=== PATIENT | male | born 1990 | race Caucasian/White ===

== ENCOUNTER 2016-12-26 20:40 | Inpatient (IN) | payer OTHER ==
[~2016-12-26] VITALS: Ht 175.3 cm; Wt 88.5 kg
[2016-12-26] MEDS ORDERED: OMEPRAZOLE40 M1 ORAL (21:08)
[2016-12-26] MEDS ORDERED: Ketorolac 30mg Inj IV ONE (21:30)
--- NOTE | 2016-12-26 21:31 | Emergency Room Report ---
History of Present Illness General Chief Complaint: Lower Back Pain or Injury Source: Patient Present Illness HPI This is a 26-year-old male with no symptom past medical history. He presents with chief complaint of back pain abdominal pain. Couple days ago he felt some pain is lower back. He was going down his right leg and now left thigh area. He was concerned because today he having right lower quadrant pain. He felt a little gassy E. with nausea but no vomiting. No loss of appetite. No diarrhea. No fever or chills. Pain is 4/10. No radiation. Allergies: Coded Allergies: SULFA (SULFONAMIDE ANTIBIOTICS) (Verified Allergy, Unknown, 12/26/16) Patient History Past Medical History: none, see triage record, old chart reviewed Past Surgical History: none Pertinent Family History: none Social History: Denies: smoking Immunizations: other Reviewed Nursing Documentation: PMH: Agreed, PSxH: Agreed Review of Systems Eye: Denies: blurred vision, eye pain ENT: Denies: ear pain, nose congestion, throat swelling Respiratory: Denies: cough, shortness of breath Cardiovascular: Denies: chest pain, palpitations Gastrointestinal: Reports: abdominal pain, nausea, Denies: diarrhea, vomiting Musculoskeletal: Denies: back pain, joint pain Skin: Denies: rash Neurological: Denies: headache, numbness Endocrine: Denies: increased thirst, increased urine Hematologic/Lymphatic: Denies: easy bruising All Other Systems: negative except mentioned in HPI Physical Exam Vital Signs Date Time Temp Pulse Resp B/P Pulse Ox O2 Delivery O2 Flow Rate FiO2 12/26/16 21:00 98.4 83 16 134/85 99 Room Air vitals normal Sp02 EP Interpretation: reviewed, normal General Appearance: well appearing, no apparent distress, alert Head: normocephalic, atraumatic Eyes: bilateral eye EOMI, bilateral eye PERRL ENT: hearing grossly normal, normal pharynx Neck: full range of motion, supple, no meningismus Respiratory: chest non-tender, lungs clear, normal breath sounds Cardiovascular #1: regular rate, rhythm, no murmur Gastrointestinal: normal bowel sounds, no mass, no organomegaly, no bruit, non- distended, tenderness - Right lower quadrant pain Musculoskeletal: back normal, gait/station normal, normal range of motion Psychiatric: mood/affect normal Skin: warm/dry Medical Decision Making Diagnostic Impression: Primary Impression: Appendicitis, acute Qualified Codes: K35.3 - Acute appendicitis with localized peritonitis ER Course Patient presents with right lower quadrant pain. His pain is well-controlled after Toradol. He does have acute appendicitis on CT scan. Kept n.p.o. and antibiotics given. No perforation or abscess. I discussed the case with the surgeon who will see him in the morning. Agree with antibiotic choice. Dr. Aguillon will be admitting. Laboratory Tests Test 12/26/16 21:00 12/26/16 21:51 Urine Color Pale yellow Urine Appearance Clear Urine pH 6 (4.5-8.0) Urine Specific [place] 1.020 (1.005-1.035) Urine Protein Negative (NEGATIVE) Urine Glucose (UA) Negative (NEGATIVE) Urine Ketones 2+ (NEGATIVE) H Urine Occult Blood Negative (NEGATIVE) Urine Nitrite Negative (NEGATIVE) Urine Bilirubin Negative (NEGATIVE) Urine Urobilinogen Normal MG/DL (0.0-1.0) Urine Leukocyte Esterase Negative (NEGATIVE) White Blood Count 10.1 K/UL (4.8-10.8) Red Blood Count 5.32 M/UL (4.70-6.10) Hemoglobin 17.3 G/DL (14.2-18.0) Hematocrit 48.0 % (42.0-52.0) Mean Corpuscular Volume 90 FL (80-99) Mean Corpuscular Hemoglobin 32.6 PG (27.0-31.0) H Mean Corpuscular Hemoglobin Concent 36.1 G/DL (32.0-36.0) H Red Cell Distribution Width 11.5 % (11.6-14.8) L Platelet Count 219 K/UL (150-450) Mean Platelet Volume 8.8 FL (6.5-10.1) Neutrophils (%) (Auto) 72.3 % (45.0-75.0) Lymphocytes (%) (Auto) 21.7 % (20.0-45.0) Monocytes (%) (Auto) 4.6 % (1.0-10.0) Eosinophils (%) (Auto) 0.6 % (0.0-3.0) Basophils (%) (Auto) 0.7 % (0.0-2.0) Sodium Level 140 mEQ/L (135-145) Potassium Level 3.8 mEQ/L (3.4-4.9) Chloride Level 97 mEQ/L (98-107) L Carbon Dioxide Level 28 mEQ/L (20-30) Anion Gap 15 (5-15) Blood Urea Nitrogen 9 mg/dL (7-23) Creatinine 0.8 mg/dL (0.7-1.2) Estimat Glomerular Filtration Rate > 60 mL/min (>60) Glucose Level 132 mg/dL (74-106) H Calcium Level 9.3 mg/dL (8.6-10.2) Lab Results Impression labs normal. CT/MRI/US Diagnostic Results CT/MRI/US Diagnostic Results : Imaging Test Ordered: CT abdomen and pelvis Impression read by radiologist. Acute appendicitis. Last Vital Signs Date Time Temp Pulse Resp B/P Pulse Ox O2 Delivery O2 Flow Rate FiO2 12/26/16 21:00 98.4 83 16 134/85 99 Room Air Status: improved Disposition: ADMITTED INPATIENT Condition: Serious TATY DUBOSE M.D. Dec 26, 2016 21:31
[2016-12-26 21:36] LABS: APPEARANCE,URINE CLEAR; KETONES,URINE 2+ (NEGATIVE); LEUKOCYTE ESTERASE ,URINE NEGATIVE (NEGATIVE); NITRITE,URINE NEGATIVE (NEGATIVE); PH,URINE 6 (4.5-8.0); PROTEIN,URINE NEGATIVE (NEGATIVE); UROBILINOGEN,URINE NORMAL MG/DL (0.0-1.0)
[2016-12-26 22:05] LABS: BASOPHILS % (AUTO) 0.7 % (0.0-2.0); EOSINOPHILS % (AUTO) 0.6 % (0.0-3.0); LYMPHOCYTES % (AUTO) 21.7 % (20.0-45.0); MEAN CORPUSCULAR HEMOGLOBIN 32.6 PG (27.0-31.0); MEAN CORPUSCULAR HGB CONC 36.1 G/DL (32.0-36.0); MEAN CORPUSCULAR VOLUME 90 FL (80-99); MEAN PLATELET VOLUME 8.8 FL (6.5-10.1); MONOCYTES % (AUTO) 4.6 % (1.0-10.0); NEUTROPHILS % (AUTO) 72.3 % (45.0-75.0); PLATELET COUNT 219 K/UL (150-450); RED BLOOD COUNT 5.32 M/UL (4.70-6.10); RED CELL DISTRIBUTION WIDTH 11.5 % (11.6-14.8); WHITE BLOOD COUNT 10.1 K/UL (4.8-10.8)
[2016-12-26 22:18] LABS: ANION GAP 15 (5-15); CALCIUM 9.3 mg/dL (8.6-10.2); CARBON DIOXIDE 28 mEQ/L (20-30); CHLORIDE 97 mEQ/L (98-107); CREATININE 0.8 mg/dL (0.7-1.2); GLOMERULAR FILTRATION RATE > 60 mL/min (>60); HEMOLYSIS 13; POTASSIUM 3.8 mEQ/L (3.4-4.9); SODIUM 140 mEQ/L (135-145)
[2016-12-26 23:15] VITALS: BP 135/87
[2016-12-26] MEDS ORDERED: Piperacillin/Tazobactam 3.375 GM in NS 110 ML IVPB ONE (23:30)
[2016-12-26] MEDS ORDERED: Zosyn 3.375gm inj ONE (23:37)
[2016-12-27] VITALS (17 sets, daily range): BP systolic 102–159; BP diastolic 54–86
[2016-12-27] MEDS ORDERED: Morphine Sulfate 2mg/ml Inj IVP PRN (00:30)
[2016-12-27] MEDS ORDERED: Ketorolac 30mg Inj IV PRN ×2 (00:30→10:30)
[2016-12-27] MEDS ORDERED: Zosyn 3.375gm inj ONE (01:01)
[2016-12-27] MEDS ORDERED: Piperacillin/Tazobactam 3.375 GM in NS 110 ML IVPB SCH (06:00)
[2016-12-27 07:08] LABS: BASOPHILS % (AUTO) 0.8 % (0.0-2.0); EOSINOPHILS % (AUTO) 1.1 % (0.0-3.0); LYMPHOCYTES % (AUTO) 29.9 % (20.0-45.0); MEAN CORPUSCULAR HEMOGLOBIN 30.1 PG (27.0-31.0); MEAN CORPUSCULAR HGB CONC 33.6 G/DL (32.0-36.0); MEAN CORPUSCULAR VOLUME 90 FL (80-99); MEAN PLATELET VOLUME 8.8 FL (6.5-10.1); MONOCYTES % (AUTO) 7.5 % (1.0-10.0); NEUTROPHILS % (AUTO) 60.6 % (45.0-75.0); PLATELET COUNT 228 K/UL (150-450); RED BLOOD COUNT 5.22 M/UL (4.70-6.10); RED CELL DISTRIBUTION WIDTH 11.8 % (11.6-14.8); WHITE BLOOD COUNT 8.4 K/UL (4.8-10.8)
[2016-12-27 07:27] LABS: ALANINE AMINOTRANSFERASE 29 U/L (3-41); ANION GAP 13 (5-15); ASPARTATE AMINO TRANSFERASE 21 U/L (5-40); CALCIUM 8.7 mg/dL (8.6-10.2); CARBON DIOXIDE 25 mEQ/L (20-30); CHLORIDE 105 mEQ/L (98-107); CREATININE 0.8 mg/dL (0.7-1.2); GLOMERULAR FILTRATION RATE > 60 mL/min (>60); HEMOLYSIS 47; POTASSIUM 4.4 mEQ/L (3.4-4.9); SODIUM 143 mEQ/L (135-145); TOTAL PROTEIN 6.3 g/dL (6.6-8.7)
[2016-12-27] MEDS ORDERED: NS Irrig 1000ml ONE (10:00)
[2016-12-27] MEDS ORDERED: Propofol 10mg/ml 20ml IV ONE (10:00)
[2016-12-27] MEDS ORDERED: Dexamethasone 4mg/ml vial ONE (10:00)
[2016-12-27] MEDS ORDERED: Midazolam 2mg/2ml Inj ONE (10:00)
[2016-12-27] MEDS ORDERED: Lidocaine 1% MPF 10mg/ml 5ml ONE (10:00)
[2016-12-27] MEDS ORDERED: Alfentanil 2ml Inj ONE (10:00)
[2016-12-27] MEDS ORDERED: Sterile Water Irrig 1000ml IRRIG ONE (10:00)
[2016-12-27] MEDS ORDERED: Neostigmine 1mg/ml 10ml Inj ONE (10:00)
[2016-12-27] MEDS ORDERED: Zemuron 50mg/5ml Inj IV ONE (10:00)
[2016-12-27] MEDS ORDERED: Glycopyrrolate 0.2mg/ml 1ml Vial ONE (10:00)
[2016-12-27] MEDS ORDERED: LR 1000ml ONE (10:00)
[2016-12-27] MEDS ORDERED: Bupivacaine 0.25% Inj 30ml INJ ONE (10:04)
--- NOTE | 2016-12-27 10:08 | Consultation ---
DATE OF CONSULTATION: 12/27/2016 PREOPERATIVE CONSULTATION REQUESTING PHYSICIAN: 1. ER Physician. 2. Sunday Carrillo M.D. REASON FOR CONSULTATION: Abdominal pain. HISTORY OF PRESENTING ILLNESS: This is a 26-year-old male, who presented with abdominal pain since yesterday. He stated for two to three days, he felt gassy, but he did not have any pain, but yesterday when he was feeling his abdomen, he started felt tenderness at the right lower quadrant and besides with some movement, he had pain in the area or with the bumps on the road in the car, he felt pain in his right lower quadrant. He stated that he had mild nausea 2 days ago, but no vomiting. He denies any fever, cough, dysuria, or frequency. He denies any previous history of similar pain. PAST MEDICAL HISTORY: He claims to be allergic to sulfa. He denies asthma, diabetes, hypertension, cardiac or renal disease. PAST SURGICAL HISTORY: None. MEDICATIONS: Omeprazole. SOCIAL HISTORY: This is a 26-year-old male, single without children. He is an actor. Denies smoking, but drinks occasionally. REVIEW OF SYSTEMS: Noncontributory. PHYSICAL EXAMINATION: GENERAL: The patient appeared to be a well-developed, well-nourished, mildly obese 26-year-old male, lying on the bed, complaining of abdominal pain. HEENT: Head is normocephalic and atraumatic. Eyes, pupils are equal, round, and reactive to light. Mouth is clear. NECK: There is no palpable thyromegaly or adenopathy. CHEST: Clear to auscultation and percussion. HEART: There is no gallop or murmur. S1 and S2 are within normal limits. ABDOMEN: Soft and flat with rebound tenderness on the right lower quadrant. There is no palpable organomegaly and bowel sounds are audible. GENITOURINARY: Genital is normal. EXTREMITIES: Within normal limits. LABORATORY DATA: CBC is within normal limits. Chemistry and UA is normal. CAT scan of the abdomen has been interpreted as acute appendicitis. ASSESSMENT: Rule out acute appendicitis. PLAN: The patient has been scheduled for exploratory laparoscopy, appendectomy, and possible open appendectomy. The risks and benefits have been explained to him. He understood and agreed. The patient was notified that the presentation is abnormal, but with CAT scan reporting an acute appendicitis and I have to take an action. Rocio Schwartz M.D. DR: TANG JOB#: [id number] CC:
[2016-12-27] MEDS ORDERED: NS Irrig 1000ml IRRIG ONE (10:12)
[2016-12-27 10:14] LABS: INR 1.2 (0.9-1.1); PROTHROMBIN TIME 11.8 SEC (9.30-11.50)
[2016-12-27] MEDS ORDERED: LR 1000ml 1,000 ML IVLG SCH (10:20)
--- NOTE | 2016-12-27 10:20 | Anethesia Preoperative Eval ---
Anesthesia Pre-op PMH/ROS General Date of Evaluation: Dec 27, 2016 Time of Evaluation: 10:11 Anesthesiologist: Harsha ASA Score: ASA 2 - Emergency Mallampati Score Class I : Soft palate, uvula, fauces, pillars visible Class II: Soft palate, uvula, fauces visible Class III: Soft palate, base of uvula visible Class IV: Only hard plate visible Mallampati Classification: Class II Surgeon: Efren Diagnosis: Abd Pain Surgical Procedure: Laparoscopic Appendectomy Anesthesia History: none Social History: smoking Family History: no anesthesia problems Allergies: Coded Allergies: SULFA (SULFONAMIDE ANTIBIOTICS) (Verified Allergy, Unknown, 12/26/16) Medications: see eMAR Past Medical History Pulmonary: Reports: other - Smoker Gastrointestinal/Genitourinary: Reports: GERD Other: obesity Anesthesia Pre-op Phys. Exam Physician Exam Last Vital Signs Date Time Temp Pulse Resp B/P Pulse Ox O2 Delivery O2 Flow Rate FiO2 12/27/16 07:59 97.9 82 19 119/70 100 Room Air Constitutional: NAD Neurologic: CN 2-12 intact Cardiovascular: RRR Respiratory: CTA Gastrointestinal: S/NT/ND Airway Exam Mallampati Score: Class II MO: limited ROM: full Teeth: intact Anesthesia Pre-op A/P Labs Hematology Test 12/26/16 21:51 12/27/16 05:05 White Blood Count 10.1 K/UL (4.8-10.8) 8.4 K/UL (4.8-10.8) Red Blood Count 5.32 M/UL (4.70-6.10) 5.22 M/UL (4.70-6.10) Hemoglobin 17.3 G/DL (14.2-18.0) 15.7 G/DL (14.2-18.0) Hematocrit 48.0 % (42.0-52.0) 46.7 % (42.0-52.0) Mean Corpuscular Volume 90 FL (80-99) 90 FL (80-99) Mean Corpuscular Hemoglobin 32.6 PG (27.0-31.0) H 30.1 PG (27.0-31.0) Mean Corpuscular Hemoglobin Concent 36.1 G/DL (32.0-36.0) H 33.6 G/DL (32.0-36.0) Red Cell Distribution Width 11.5 % (11.6-14.8) L 11.8 % (11.6-14.8) Platelet Count 219 K/UL (150-450) 228 K/UL (150-450) Mean Platelet Volume 8.8 FL (6.5-10.1) 8.8 FL (6.5-10.1) Neutrophils (%) (Auto) 72.3 % (45.0-75.0) 60.6 % (45.0-75.0) Lymphocytes (%) (Auto) 21.7 % (20.0-45.0) 29.9 % (20.0-45.0) Monocytes (%) (Auto) 4.6 % (1.0-10.0) 7.5 % (1.0-10.0) Eosinophils (%) (Auto) 0.6 % (0.0-3.0) 1.1 % (0.0-3.0) Basophils (%) (Auto) 0.7 % (0.0-2.0) 0.8 % (0.0-2.0) Coagulation Test 12/27/16 09:35 Prothrombin Time 11.8 SEC (9.30-11.50) H Prothromb Time International Ratio 1.2 (0.9-1.1) H Chemistry Test 12/26/16 21:51 12/27/16 05:05 Sodium Level 140 mEQ/L (135-145) 143 mEQ/L (135-145) Potassium Level 3.8 mEQ/L (3.4-4.9) 4.4 mEQ/L (3.4-4.9) Chloride Level 97 mEQ/L (98-107) L 105 mEQ/L (98-107) Carbon Dioxide Level 28 mEQ/L (20-30) 25 mEQ/L (20-30) Anion Gap 15 (5-15) 13 (5-15) Blood Urea Nitrogen 9 mg/dL (7-23) 8 mg/dL (7-23) Creatinine 0.8 mg/dL (0.7-1.2) 0.8 mg/dL (0.7-1.2) Estimat Glomerular Filtration Rate > 60 mL/min (>60) > 60 mL/min (>60) Glucose Level 132 mg/dL (74-106) H 97 mg/dL (74-106) Calcium Level 9.3 mg/dL (8.6-10.2) 8.7 mg/dL (8.6-10.2) Total Bilirubin 0.4 mg/dL (0.0-1.2) Aspartate Amino Transf (AST/SGOT) 21 U/L (5-40) Alanine Aminotransferase (ALT/SGPT) 29 U/L (3-41) Alkaline Phosphatase 58 U/L (40-129) Total Protein 6.3 g/dL (6.6-8.7) L Albumin 4.2 g/dL (3.5-5.2) Globulin 2.1 g/dL Albumin/Globulin Ratio 2.0 (1.0-2.7) Risk Assessment & Plan Assessment: ASA 2E Plan: GA, BIS, Glidescope Status Change Before Surgery: No Pre-Antibiotics Dru Gram Ancef IV Given Within 1 Hr of Incision: Yes Time Given: 10:26 Joseph Mcleod MD Dec 27, 2016 10:20
[2016-12-27] MEDS ORDERED: Midazolam 2mg/2ml Inj IVP PRN (10:30)
[2016-12-27] MEDS ORDERED: Oxycodone/Acetaminophen 5-325 ORAL PRN (10:30)
[2016-12-27] MEDS ORDERED: DiphenhydrAMINE 50mg/ml Inj IVP PRN (10:30)
[2016-12-27] MEDS ORDERED: Meperidine 25mg/ml Inj IV PRN (10:30)
[2016-12-27] MEDS ORDERED: fentaNYL 100 mcg/2 mL IV PRN (10:30)
[2016-12-27] MEDS ORDERED: Norco 5mg/325mg tab ORAL PRN (10:30)
[2016-12-27] MEDS ORDERED: Norco 7.5mg/325mg tab ORAL PRN (10:30)
[2016-12-27] MEDS ORDERED: Ketorolac 60mg Inj IV PRN (10:30)
[2016-12-27] MEDS ORDERED: LORazepam Inj 2mg/ml 1ml IV PRN (10:30)
[2016-12-27] MEDS ORDERED: Hydromorphone 0.5mg/0.5ml inj IVP PRN (10:30)
[2016-12-27] MEDS ORDERED: Atropine Inj 1mg/10ml Syr IV PRN (10:30)
[2016-12-27] MEDS ORDERED: Metoclopramide 10mg/2ml Inj IVP PRN ×2 (10:30→11:30)
[2016-12-27] MEDS ORDERED: Labetalol 5mg/ml 20ml vial IV PRN (10:30)
--- NOTE | 2016-12-27 10:45 | Immediate Post-Op Evaluation ---
Immediate Post-Op Evalulation Immediate Post-Op Evalulation Procedure: Laparoscopic Appendectomy Date of Evaluation: Dec 27, 2016 Time of Evaluation: 11:40 IV Fluids: 1100 LR Blood Products: 0 Estimated Blood Loss: 7 Urinary Output: 0 Blood Pressure Systolic: 139 Blood Pressure Diastolic: 86 Pulse Rate: 111 Respiratory Rate: 16 O2 Sat by Pulse Oximetry: 97 Temperature (Fahrenheit): 98.1 Pain Score (1-10): 2 Nausea: No Vomiting: No Complications 0 Patient Status: awake, reacts, patent, extubated, none Hydration Status: adequate Dru Gram Ancef IV Given Within 1 Hr of Incision: Yes Time Given: 10:26 Joseph Mcleod MD Dec 27, 2016 10:45
--- NOTE | 2016-12-27 10:47 | 48 Hour Post Anesthesia Eval ---
Post Anesthesia Evaluation Procedure: Laparoscopic Appendectomy Date of Evaluation: Dec 27, 2016 Time of Evaluation: 13:42 Blood Pressure Systolic: 128 0: 73 Pulse Rate: 89 Respiratory Rate: 18 Temperature (Fahrenheit): 98.4 O2 Sat by Pulse Oximetry: 98 Airway: patent Nausea: No Vomiting: No Pain Intensity: 2 Hydration Status: adequate Cardiopulmonary Status: Stable Mental Status/LOC: patient returned to baseline Follow-up Care/Observations: 0 Post-Anesthesia Complications: 0 Follow-up care needed: N/A Joseph Mcleod MD Dec 27, 2016 10:46
--- NOTE | 2016-12-27 11:23 | Pre-Procedure Note/Attestation ---
Pre-Procedure Note/Attestation Complete Prior to Procedure Planned Procedure: not applicable Procedure Narrative: exploratory laparoscopy, appendectomy, possible open appendectomy Indications for Procedure Pre-Operative Diagnosis: R/O acute appendicitis Attestation I attest that I discussed the nature of the procedure; its benefits; risks and complications; and alternatives (and the risks and benefits of such alternatives ), prior to the procedure, with the patient (or the patient's legal sales solutions representative). I attest that, if there was a reasonable possibility of needing a blood transfusion, the patient (or the patient's legal sales solutions representative) was given the [facility] standardized written summary, pursuant to the Dieudonne Shannon Blood Safety Act ([place] Health and Safety Code # 1645, as amended). I attest that I re-evaluated the patient just prior to the surgery and that there has been no change in the patient's H&P, except as documented below: YAIR FRAIRE Dec 27, 2016 11:23
--- NOTE | 2016-12-27 11:25 | Brief Operative Note ---
Immediate Post Operative Note Operative Note Pre-op Diagnosis: R/O acute appendicitis Post-op Diagnosis: Possible early appendicitis Surgeon: MD Ying Agronomy Professor: none Anesthesiologist: Dr. Lackey Anesthesia: general Specimen: yes Complications: none Condition: stable Estimated Blood Loss: minimal Drains: none Implant(s) used?: No YAIR FRAIRE Dec 27, 2016 11:25
[2016-12-27] MEDS ORDERED: HYDROmorphone 1mg/ml Carpuject IVP PRN (11:30)
[2016-12-27] MEDS ORDERED: Acetaminophen 650 MG SUPP RECTAL PRN (11:30)
[2016-12-27] MEDS: D5 1/2NS w/KCl 20mEq 1,000 ML IV SCH ×2 (14:04→23:45)
[2016-12-27] MEDS: Pantoprazole Inj IVP SCH (14:05)
[2016-12-27] MEDS: Piperacillin/Tazobactam 3.375 GM in NS 110 ML IVPB SCH ×2 (14:05→21:41)
[2016-12-27] MEDS: Hydromorphone 0.5mg/0.5ml inj IVP PRN ×3 (14:06→21:47)
--- NOTE | 2016-12-27 15:07 | History and Physical ---
History of Present Illness General Date patient seen: Dec 27, 2016 Reason for Hospitalization: Lower Back Pain or Injury Present Illness HPI 26 yr old male s/p appendectomy, in no apparent distress, stated that he was having severe abdominal pain which worsened over 24 hrs, he was diagnosed with appendicitis in the ED. Allergies: Coded Allergies: SULFA (SULFONAMIDE ANTIBIOTICS) (Verified Allergy, Unknown, 12/26/16) Medication History Scheduled Levofloxacin* (Levaquin*), 500 MG ORAL DAILY, (Reported) Omeprazole (Omeprazole), 40 MG ORAL DAILY, (Reported) Scheduled PRN Tramadol Hcl* (Ultram*), 50 MG ORAL Q6H PRN for For Pain, (Reported) Patient History History Provided By: Patient Healthcare decision maker Resuscitation status Full Code Advanced Directive on File Past Medical/Surgical History Past Medical/Surgical History: (1) GERD (gastroesophageal reflux disease) Social History Social History: (1) No history of alcohol use (2) Does not use illicit drugs (3) Does not smoke Review of Systems Constitutional: Denies: chills, fever, malaise, no symptoms, other, see HPI, sweats, weakness Eye: Denies: acuity changes, blurred vision, discharge, double vision, eye pain , no symptoms, nose congestion, nose pain, other, see HPI, tearing ENT: Denies: ear discharge, ear pain, hearing loss, mouth pain, nasal discharge , no symptoms, nose congestion, nose pain, other, see HPI, throat pain, throat swelling Respiratory: Denies: CHRIS, cough, no symptoms, orthopnea, other, see HPI, shortness of breath, sputum, stridor, wheezing Cardiovascular: Denies: PND, chest pain, edema, no symptoms, other, palpitations, see HPI, syncope Gastrointestinal: Reports: abdominal pain Genitourinary: Denies: discharge, dysuria, frequency, hematuria, incontinence, no symptoms, other, pain, retention, see HPI, urgency, vag bleed/dc Musculoskeletal: Denies: back pain, gout, joint pain, joint swelling, muscle pain, muscle stiffness, no symptoms, other, see HPI Skin: Denies: change in color, change in hair/nails, dryness, lesions, no symptoms, other, rash, see HPI Psychiatric: Denies: HI, SI, anxiety, depressed feelings, emotional problems, hallucinations, no symptoms, other, prior hx, see HPI Neurological: Denies: dizziness, focal weakness, headache, no symptoms, numbness, other, paresthesia, see HPI, seizure, syncope, tingling, tremors Endocrine: Denies: excessive sweating, flushing, increased thirst, increased urine, intolerance to temperature, no symptoms, other, see HPI, unexplained weight loss Hematologic/Lymphatic: Denies: anemia, blood clots, diathesis, easy bleeding, easy bruising, no symptoms, other, see HPI, swollen glands Physical Exam General Appearance: no apparent distress, alert Lines, tubes and drains: peripheral HEENT: normocephalic, atraumatic Neck: normal alignment, supple, normal inspection Respiratory/Chest: lungs clear, normal breath sounds, no respiratory distress Cardiovascular/Chest: normal rate, regular rhythm, no JVD Abdomen: soft, tender Extremities: non-tender, normal inspection, no calf tenderness, normal capillary refill Skin Exam: warm/dry, other - surgical sites Neurologic: alert, oriented x 3, responsive, normal mood/affect Last 24 Hour Vital Signs Date Time Temp Pulse Resp B/P Pulse Ox O2 Delivery O2 Flow Rate FiO2 12/27/16 14:36 97.9 12/27/16 13:49 97.9 101 18 112/58 97 Room Air 12/27/16 13:30 98.6 101 18 112/64 98 Room Air 12/27/16 13:14 98.2 104 18 102/54 95 Room Air 12/27/16 12:53 97.5 105 19 114/69 93 Room Air 12/27/16 12:25 97.8 97 16 108/72 97 Nasal Cannula 3.0 12/27/16 12:15 98 18 112/70 96 Nasal Cannula 3.0 12/27/16 12:00 96 15 113/69 98 Nasal Cannula 3.0 12/27/16 11:50 99 16 126/67 97 Nasal Cannula 3.0 12/27/16 11:40 98 16 116/68 99 Simple Mask 6.0 12/27/16 11:35 96 15 114/72 100 Simple Mask 6.0 12/27/16 11:32 89 18 98 12/27/16 11:31 111 16 97 12/27/16 11:30 98.1 111 16 159/86 97 Simple Mask 6.0 12/27/16 07:59 97.9 82 19 119/70 100 Room Air 12/27/16 04:00 97.3 85 21 122/66 99 Room Air 12/27/16 00:30 98.6 80 16 136/85 100 Room Air 12/27/16 00:30 98.6 80 16 136/85 100 Room Air 12/27/16 00:00 98.1 90 21 131/78 97 Room Air 12/26/16 23:15 98.7 78 16 135/87 100 Room Air 12/26/16 22:14 98.5 12/26/16 21:00 98.4 83 16 134/85 99 Room Air Intake and Output 12/26/16 12/27/16 19:00 07:00 Intake Total 1550 ml Output Total 300 ml Balance 1250 ml IV Total 1550 ml Output Urine Total 300 ml # Voids 4 Laboratory Tests Test 12/26/16 21:00 12/26/16 21:51 12/27/16 05:05 12/27/16 09:35 Urine Color Pale yellow Urine Appearance Clear Urine pH 6 (4.5-8.0) Urine Specific [place] 1.020 (1.005-1.035) Urine Protein Negative (NEGATIVE) Urine Glucose (UA) Negative (NEGATIVE) Urine Ketones 2+ (NEGATIVE) H Urine Occult Blood Negative (NEGATIVE) Urine Nitrite Negative (NEGATIVE) Urine Bilirubin Negative (NEGATIVE) Urine Urobilinogen Normal MG/DL (0.0-1.0) Urine Leukocyte Esterase Negative (NEGATIVE) White Blood Count 10.1 K/UL (4.8-10.8) 8.4 K/UL (4.8-10.8) Red Blood Count 5.32 M/UL (4.70-6.10) 5.22 M/UL (4.70-6.10) Hemoglobin 17.3 G/DL (14.2-18.0) 15.7 G/DL (14.2-18.0) Hematocrit 48.0 % (42.0-52.0) 46.7 % (42.0-52.0) Mean Corpuscular Volume 90 FL (80-99) 90 FL (80-99) Mean Corpuscular Hemoglobin 32.6 PG (27.0-31.0) H 30.1 PG (27.0-31.0) Mean Corpuscular Hemoglobin Concent 36.1 G/DL (32.0-36.0) H 33.6 G/DL (32.0-36.0) Red Cell Distribution Width 11.5 % (11.6-14.8) L 11.8 % (11.6-14.8) Platelet Count 219 K/UL (150-450) 228 K/UL (150-450) Mean Platelet Volume 8.8 FL (6.5-10.1) 8.8 FL (6.5-10.1) Neutrophils (%) (Auto) 72.3 % (45.0-75.0) 60.6 % (45.0-75.0) Lymphocytes (%) (Auto) 21.7 % (20.0-45.0) 29.9 % (20.0-45.0) Monocytes (%) (Auto) 4.6 % (1.0-10.0) 7.5 % (1.0-10.0) Eosinophils (%) (Auto) 0.6 % (0.0-3.0) 1.1 % (0.0-3.0) Basophils (%) (Auto) 0.7 % (0.0-2.0) 0.8 % (0.0-2.0) Sodium Level 140 mEQ/L (135-145) 143 mEQ/L (135-145) Potassium Level 3.8 mEQ/L (3.4-4.9) 4.4 mEQ/L (3.4-4.9) Chloride Level 97 mEQ/L (98-107) L 105 mEQ/L (98-107) Carbon Dioxide Level 28 mEQ/L (20-30) 25 mEQ/L (20-30) Anion Gap 15 (5-15) 13 (5-15) Blood Urea Nitrogen 9 mg/dL (7-23) 8 mg/dL (7-23) Creatinine 0.8 mg/dL (0.7-1.2) 0.8 mg/dL (0.7-1.2) Estimat Glomerular Filtration Rate > 60 mL/min (>60) > 60 mL/min (>60) Glucose Level 132 mg/dL (74-106) H 97 mg/dL (74-106) Calcium Level 9.3 mg/dL (8.6-10.2) 8.7 mg/dL (8.6-10.2) Total Bilirubin 0.4 mg/dL (0.0-1.2) Aspartate Amino Transf (AST/SGOT) 21 U/L (5-40) Alanine Aminotransferase (ALT/SGPT) 29 U/L (3-41) Alkaline Phosphatase 58 U/L (40-129) Total Protein 6.3 g/dL (6.6-8.7) L Albumin 4.2 g/dL (3.5-5.2) Globulin 2.1 g/dL Albumin/Globulin Ratio 2.0 (1.0-2.7) Prothrombin Time 11.8 SEC (9.30-11.50) H Prothromb Time International Ratio 1.2 (0.9-1.1) H HIV (1&2) Antibody Rapid Negative (NEGATIVE) Height (Feet): 5 Height (Inches): 9.00 Weight (Pounds): 195 Medications Current Medications Medications (Trade) Dose Ordered Sig/Jose E Route PRN Reason Start Time Stop Time Status Last Admin Dose Admin Acetaminophen (Tylenol) 650 mg Q4H PRN ORAL fever 12/27/16 00:30 01/26/17 00:29 Acetaminophen 650 mg 650 mg Q4H PRN RECTAL FEVER 12/27/16 11:30 01/26/17 11:29 Dextrose STAT PRN IV Hypoglycemia 12/27/16 00:30 01/26/17 00:29 Dextrose/ Electrolytes (D5 0.45%NS W/ KCl 20mEq) 1,000 ml @ 100 mls/hr Q10H IV 12/27/16 13:45 01/26/17 13:44 12/27/16 14:04 Hydromorphone HCl (Dilaudid) 0.5 mg Q3H PRN IVP Pain Score 1-3 12/27/16 11:30 01/03/17 11:29 12/27/16 14:06 Hydromorphone HCl (Dilaudid) 1 mg Q3H PRN IVP pain score 4-6 12/27/16 11:30 01/03/17 11:29 Metoclopramide HCl (Reglan) 10 mg Q6H PRN IVP Nausea & Vomiting 12/27/16 11:30 01/26/17 11:29 Morphine Sulfate (Morphine Sulfate) 2 mg Q4H PRN IVP Severe Pain (Pain Scale 7-10) 12/27/16 00:30 01/03/17 00:29 Ondansetron HCl (Zofran) 4 mg Q6H PRN IVP Nausea & Vomiting 12/27/16 11:30 01/26/17 11:29 Pantoprazole (Protonix) 40 mg DAILY IVP 12/27/16 14:00 01/26/17 13:59 12/27/16 14:05 Piperacillin Sod/ Tazobactam Sod/ Sodium Chloride (Zosyn/Sodium Chloride) 110 ml @ 27.5 mls/hr EVERY 8 HOURS IVPB 12/27/16 14:00 01/01/17 13:59 12/27/16 14:05 Assessment/Plan Problem List: (1) S/P appendectomy ICD Codes: Z90.49 - Acquired absence of other specified parts of digestive tract SNOMED: 20142506, [id number] (2) Appendicitis, acute ICD Codes: K35.80 - Unspecified acute appendicitis SNOMED: 04233142 Qualifiers: Qualified Codes: K35.3 - Acute appendicitis with localized peritonitis (3) GERD (gastroesophageal reflux disease) ICD Codes: K21.9 - Gastro-esophageal reflux disease without esophagitis SNOMED: 288859436 Status: stable Assessment/Plan Monitor surg site F/U with surgeon's rec Cont IVF Monitor lytes Monitor vitals Pain management AM labs Lorie Wiggins N.P. Dec 27, 2016 15:07
--- NOTE | 2016-12-27 23:38 | Operative Note - Dictated ---
DATE OF OPERATION: 12/27/2016 PREOPERATIVE DIAGNOSIS: Rule out acute appendicitis. POSTOPERATIVE DIAGNOSIS: Possible early appendicitis. OPERATION: Exploratory laparoscopy and appendectomy. COMPLICATIONS: None. SURGEON: Rocio Schwartz M.D. ELECTRONIC IMAGER: None. ANESTHESIA: General with endotracheal tube. ANESTHESIOLOGIST: Joseph Mcleod M.D. INDICATION: This is a 26-year-old male, who presented with pain in the right lower quadrant for about one day. He stated that he felt gassy for two to three days, but yesterday he started experiencing pain in the right lower quadrant with touching the area and movements. He denied any nausea or vomiting. He denies any fever. Physical examination showed tenderness at the right lower quadrant. CBC was normal. UA and chemistry were normal. Although the radiologist interpreted the CAT scan as acute appendicitis, but considering the history and physical and the normal CBC, I felt that the chances of the patient having the acute appendicitis was very small. But considering the CAT scan reading and tenderness at the right lower quadrant, the decision was made for exploratory laparoscopy. I explained the situation to the patient and he was informed that the appendix might be normal, but with considering the CAT scan, I had to explore. The patient understood and agreed. DESCRIPTION OF PROCEDURE: The patient was placed supine on the operating table. After general anesthesia with endotracheal tube, the abdomen was properly prepped and draped. A small incision was given above the umbilicus and through which a Veress needle was introduced into the intraperitoneal cavity. This cavity was insufflated up to 15 mmHg. The Veress needle was removed and a 5 mm trocar was placed in the intraperitoneal cavity through the incision above the umbilicus. Laparoscope and camera was introduced into the intraperitoneal cavity through the trocar above the umbilicus and under direct vision, a 5 mm trocar was placed at the suprapubic area and a 12 mm trocar was placed at the left lower quadrant of the abdomen. Initially, a rapid exploration was performed, which showed the diaphragms to be normal. The part of the stomach, which could be seen was normal. The liver had fatty infiltrate. The gallbladder was distended, but seemed to be normal. The bowels were covered with fatty omentum. There was no fluid in the intra-abdominal cavity. The exploration of the right lower quadrant cavity was performed and the cecum was identified and isolated. The further exploration showed that the appendix was retrocecal and retroperitoneal. Gradually, the appendix was released from under the peritoneum and was exposed. The appendix was basically normal, maybe there was some inflammation at the distal part. The appendix was ligated and transected with the help of the HANNAH stapler at the base and then the mesoappendix was ligated and transected with the help of the HANNAH stapler. The appendix was removed from the intraperitoneal cavity through the incision at the left lower quadrant. The right paracolic gutter and the pelvis was thoroughly irrigated with antibiotic solution. Another exploration was performed. There was no complication or bleeding. The trocars were removed under direct vision. The incisions were infiltrated with total of 30 mL of Marcaine 0.25%. The subcutaneous tissue was approximated with 4-0 chromic and the skin incisions were approximated with running subcuticular suture of 4-0 chromic. The patient tolerated the procedure very well and was transferred to recovery room in stable condition and extubated. The sponge and needle count were correct. ESTIMATED BLOOD LOSS: 5 mL. Condition of the patient at the end of procedure was stable. Rocio Schwartz M.D. DR: JUDY JOB#: [id number] CC:
[2016-12-28] VITALS: BP 120/72
[2016-12-28 04:00] VITALS: BP 111/55
[2016-12-28] MEDS: Piperacillin/Tazobactam 3.375 GM in NS 110 ML IVPB SCH ×2 (05:40→14:00)
[2016-12-28] MEDS: Hydromorphone 0.5mg/0.5ml inj IVP PRN ×4 (05:47→15:55)
[2016-12-28 07:06] LABS: ANION GAP 15 (5-15); CALCIUM 8.9 mg/dL (8.6-10.2); CARBON DIOXIDE 24 mEQ/L (20-30); CHLORIDE 101 mEQ/L (98-107); CREATININE 0.7 mg/dL (0.7-1.2); GLOMERULAR FILTRATION RATE > 60 mL/min (>60); HEMOLYSIS 5; SODIUM 140 mEQ/L (135-145)
[2016-12-28 07:32] LABS: BASOPHILS % (AUTO) 0.2 % (0.0-2.0); EOSINOPHILS % (AUTO) 0.2 % (0.0-3.0); MEAN CORPUSCULAR HEMOGLOBIN 30.9 PG (27.0-31.0); MEAN CORPUSCULAR HGB CONC 34.2 G/DL (32.0-36.0); MEAN CORPUSCULAR VOLUME 90 FL (80-99); MEAN PLATELET VOLUME 8.9 FL (6.5-10.1); MONOCYTES % (AUTO) 6.3 % (1.0-10.0); NEUTROPHILS % (AUTO) 80.3 % (45.0-75.0); PLATELET COUNT 237 K/UL (150-450); RED BLOOD COUNT 4.91 M/UL (4.70-6.10); RED CELL DISTRIBUTION WIDTH 11.8 % (11.6-14.8); WHITE BLOOD COUNT 13.4 K/UL (4.8-10.8)
[2016-12-28 08:17] VITALS: BP 113/65
[2016-12-28] MEDS: Pantoprazole Inj IVP SCH (08:29)
[2016-12-28] MEDS ORDERED: Tubing IV Secondary IV ONE (08:52)
[2016-12-28] MEDS: D5 1/2NS w/KCl 20mEq 1,000 ML IV SCH (09:45)
[2016-12-28 11:49] VITALS: BP 107/58
--- NOTE | 2016-12-28 12:44 | General Surgery Progress Note ---
General Surgery-Progress Note Subjective Symptoms: improved, passing flatus Objective Last 24 Hour Vital Signs Date Time Temp Pulse Resp B/P Pulse Ox O2 Delivery O2 Flow Rate FiO2 12/28/16 11:49 97.5 71 18 107/58 99 Room Air 12/28/16 08:59 96.8 12/28/16 08:17 96.8 70 18 113/65 96 Room Air 12/28/16 04:00 97.9 92 19 111/55 96 Room Air 12/28/16 00:00 98.1 65 20 120/72 95 Room Air 12/27/16 20:00 98.1 96 19 123/67 95 Room Air 12/27/16 16:00 99.0 93 19 121/66 95 Room Air 12/27/16 13:49 97.9 101 18 112/58 97 Room Air 12/27/16 13:30 98.6 101 18 112/64 98 Room Air 12/27/16 13:14 98.2 104 18 102/54 95 Room Air 12/27/16 12:53 97.5 105 19 114/69 93 Room Air I&O Intake and Output 12/27/16 12/28/16 19:00 07:00 Intake Total 727 ml Balance 727 ml IV Total 727 ml # Voids 2 Dressing: dry Respiratory: clear Abdomen: soft, flat, non-tender, present bowel sounds Extremities: no tenderness Laboratory Tests Test 12/28/16 06:20 White Blood Count 13.4 K/UL (4.8-10.8) #H Red Blood Count 4.91 M/UL (4.70-6.10) Hemoglobin 15.2 G/DL (14.2-18.0) Hematocrit 44.3 % (42.0-52.0) Mean Corpuscular Volume 90 FL (80-99) Mean Corpuscular Hemoglobin 30.9 PG (27.0-31.0) Mean Corpuscular Hemoglobin Concent 34.2 G/DL (32.0-36.0) Red Cell Distribution Width 11.8 % (11.6-14.8) Platelet Count 237 K/UL (150-450) Mean Platelet Volume 8.9 FL (6.5-10.1) Neutrophils (%) (Auto) 80.3 % (45.0-75.0) H Lymphocytes (%) (Auto) 13.0 % (20.0-45.0) L Monocytes (%) (Auto) 6.3 % (1.0-10.0) Eosinophils (%) (Auto) 0.2 % (0.0-3.0) Basophils (%) (Auto) 0.2 % (0.0-2.0) Sodium Level 140 mEQ/L (135-145) Potassium Level 4.0 mEQ/L (3.4-4.9) Chloride Level 101 mEQ/L (98-107) Carbon Dioxide Level 24 mEQ/L (20-30) Anion Gap 15 (5-15) Blood Urea Nitrogen 9 mg/dL (7-23) Creatinine 0.7 mg/dL (0.7-1.2) Estimat Glomerular Filtration Rate > 60 mL/min (>60) Glucose Level 104 mg/dL (74-106) Calcium Level 8.9 mg/dL (8.6-10.2) Assessment Post-op Diagnosis Possible early appendicitis Plan Additional Comments can be discharged home YAIR FRAIRE Dec 28, 2016 12:44
[2016-12-28] MEDS ORDERED: TRAMADOL HCL50 MG ORAL (12:55)
[2016-12-28] MEDS ORDERED: LEVAQUIN500 MG ORAL (12:55)
[2016-12-28 16:00] VITALS: BP 109/71
--- NOTE | 2016-12-29 08:05 | Diagnostic Imaging Report ---
Indication: Abdominal pain Technique: CT of the abdomen and pelvis utilizing automated exposure control with intravenous contrast. Venous scanning performed. CT dose: Total DLP 960 mGycm; CTDI vol 17.7 mGy Comparison: None Findings: Liver, adrenal glands, spleen and pancreas are unremarkable. No CT evident gallstones are seen. The right kidney is malrotated. The kidneys are otherwise unremarkable. The small bowel loops are normal in caliber. The appendix is prominent in caliber measuring 10 mm with mild wall enhancement and minimal periappendiceal stranding. There is no free intraperitoneal fluid or air. There is no abscess. The abdominal aorta is normal in caliber. Mesenteric lymph nodes are noted measuring up to 8 mm. The osseous structures demonstrate no acute abnormality. Impression: Prominent caliber appendix measuring 10 mm with mild wall enhancement and minimal periappendiceal stranding. Acute appendicitis should be considered in the appropriate clinical setting. No abscess or free air. Other findings as above. The above report is concordant with preliminary reading by [employer]. The CT scanner at [facility] is accredited by the [employer] [place] [employer] and the scans are performed using protocols designed to limit radiation exposure to as low as reasonably achievable to attain images of sufficient resolution adequate for diagnostic evaluation.
--- NOTE | 2016-12-29 12:08 | Discharge Summary ---
Discharge Summary Hospital Course Date of Admission Dec 26, 2016 at 23:51 Date of Discharge Dec 28, 2016 at 16:35 Admitting Diagnosis appendicitis- Reason for Hospitalization: lower back pain MICHAEL Becker is a 26 year old male who was admitted on Dec 26, 2016 at 23:51 for Appendicitis. He presents with chief complaint of back pain abdominal pain. Couple days ago he felt some pain is lower back. He was going down his right leg and now left thigh area. He was concerned because today he having right lower quadrant pain. He felt a little gassy E. with nausea but no vomiting. No loss of appetite. No diarrhea. No fever or chills. Pain is 4/ 10. No radiation. Patient History Past Medical History: none, see triage record, old chart reviewed Past Surgical History: none Pertinent Family History: none Social History: Denies: smoking Immunizations: other Reviewed Nursing Documentation: PMH: Agreed, PSxH: Agreed Consultations Surgical Procedures Lab Results Impression labs normal. CT/MRI/US Diagnostic Results CT/MRI/US Diagnostic Results : Imaging Test Ordered: CT abdomen and pelvis Impression read by radiologist. Acute appendicitis. Procedure: Laparoscopic Appendectomy Date of Evaluation: Dec 27, 2016 Hospital Course Medical Decision Making Diagnostic Impression: Primary Impression: Appendicitis, acute Qualified Codes: K35.3 - Acute appendicitis with localized peritonitis ER Course Patient presents with right lower quadrant pain. His pain is well-controlled after Toradol. He does have acute appendicitis on CT scan. Kept n.p.o. and antibiotics given. No perforation or abscess. I discussed the case with the surgeon who will see him in the morning. Agree with antibiotic choice. Dr. Aguillon will be admitting. Hospital Course Problem List: (1) S/P appendectomy ICD Codes: Z90.49 - Acquired absence of other specified parts of digestive tract SNOMED: 84022560, 967390984 (2) Appendicitis, acute ICD Codes: K35.80 - Unspecified acute appendicitis SNOMED: 00902532 Qualifiers: Qualified Codes: K35.3 - Acute appendicitis with localized peritonitis (3) GERD (gastroesophageal reflux disease) ICD Codes: K21.9 - Gastro-esophageal reflux disease without esophagitis SNOMED: 700641720 Status: stable Assessment/Plan Monitor surgical site F/U with surgeon's rec Cont IVF Monitor lytes Monitor vitals Pain management AM labs Surgical Consult LABORATORY DATA: CBC is within normal limits. Chemistry and UA is normal. CAT scan of the abdomen has been interpreted as acute appendicitis. ASSESSMENT: Rule out acute appendicitis. PLAN: The patient has been scheduled for exploratory laparoscopy, appendectomy , and possible open appendectomy. The risks and benefits have been explained to him. He understood and agreed. The patient was notified that the presentation is abnormal, but with CAT scan reporting an acute appendicitis and I have to take an action. Final Hospital Course (1) S/P appendectomy with no complications - Pt stable, discharged home. ICD Codes: Z90.49 - Acquired absence of other specified parts of digestive tract SNOMED: 32703018, [id number] (2) Appendicitis, acute ICD Codes: K35.80 - Unspecified acute appendicitis SNOMED: 51549613 Qualifiers: Qualified Codes: K35.3 - Acute appendicitis with localized peritonitis (3) GERD (gastroesophageal reflux disease) ICD Codes: K21.9 - Gastro-esophageal reflux disease without esophagitis SNOMED: 740403344 Discharge Medications Continued Medications: Levofloxacin* (Levaquin*) 500 Mg Tablet 500 MG ORAL DAILY for 5 Days, TAB Omeprazole (Omeprazole) 40 Mg Capsule.dr 40 MG ORAL DAILY, CAP Tramadol Hcl* (Ultram*) 50 Mg Tablet 50 MG ORAL Q6H PRN for For Pain, #20 TAB 0 Refills Discharge Condition Upon Discharge: stable Discharge Disposition Patient was discharged to Home (01) Discharge Diagnoses: Discharge Instructions Discharge Instructions Special Instructions NURSE NOTES: Pt discharged to home in stable condition. Wrist band d/c, pain controlled and wrist band d/c. Pt ambulated off unit. I have been assigned to the discharge summary of this patient and did not provide any care for the patient. Gabriela Marie,Nellie Min N.P. Dec 29, 2016 12:08
== END 2016-12-28 16:35 | disposition home or self-care (01) | DRG 343 ==
LOC: EMR 22:06 → 3E 23:51 → EDBEDREQ 12-27 00:11
PROC: 0DTJ4ZZ Resection of Appendix, Percutaneous Endoscopic Approach (ICD-10-PCS; principal; 2016-12-27 10:00)
DX: K35.80 Unspecified acute appendicitis (principal); K21.9 Gastro-esophageal reflux disease without esophagitis; Z88.2 Allergy status to sulfonamides
CPT/HCPCS: 36415; 74177; 80048; 80053; 81003; 85025; 85610; 86703; 86850; 86900; 86901; 94003; 94150; J2250; J2405; J2710; J3490